=== PATIENT | female | born 1955 | race Caucasian/White ===

== ENCOUNTER 2017-12-19 12:15 | Emergency (ER) | payer BC ==
--- OUTSIDE RECORDS SUMMARY | 2017-12-19 12:20 | XMS REPORT ---
:1955 Author Organization [facility] Address [address] [place] [address] Care Team Providers Name Role Phone Janis Doherty Unavailable Unavailable PROBLEMS Type Condition ICD9-CM Code CSO96-ZT Code Onset Condition SNOMED Code Dates Status Problem Other abnormal R92.8 Active 864555256 and inconclusive findings on diagnostic imaging of breast Problem Abnormal findings R93.8 Active 281716326 on diagnostic imaging of other specified body structures Problem Pelvic and R10.2 Active 965446046 perineal pain Problem Rectocele N81.6 Active 010073858 Problem Family history of Z80.3 Active 969127589 malignant neoplasm of breast Problem Mastodynia N64.4 Active 58958644 Problem Age-related M81.0 Active 671795065 osteoporosis without current pathological fracture ALLERGIES Substance Reaction Event Type Date Status Penicillin unknown Drug Allergy Nov, Active ENCOUNTERS Encounter Location Date Diagnosis [facility] [address] [facility] [address], [address] [place] [id number] [facility] 103 Feb, OBGYN [place] [id number] [facility] 103 Feb, OBGYN [place], [place] [id number] [facility] 103 Nov, Pelvic and perineal pain OBGYN [facility], R10.2 and Abnormal [place] [id number] findings on diagnostic imaging of other specified body structures R93.8 [facility] 103 Nov, Pelvic and perineal pain OBGYN [facility], R10.2 [place] [id number] [facility] Oct, [place] [id number] [facility] [address] [facility] Oct, Encounter for Road [address] [place], gynecological examination [place] [id number] (general) (routine) with abnormal findings Z01.411 ; Encounter for screening for malignant neoplasm of cervix Z12.4 ; Encounter for screening for malignant neoplasm of colon Z12.11 ; Family history of malignant neoplasm of breast Z80.3 ; Age-related osteoporosis without current pathological fracture M81.0 ; Rectocele N81.6 ; Pelvic and perineal pain R10.2 and Mastodynia N64.4 [facility] 103 Aug, OBGYN [place], [place] [id number] [facility] [address] [facility] [address], [address] [id number] [place] [facility] [address] [place], [place] [address] September, Family history of Road [address], malignant neoplasm of [place] [id number] breast Z80.3 [place] [facility] [address] [facility] Aug, Encounter for Road [address], gynecological examination [place] [id number] (general) (routine) with abnormal findings Z01.411 ; Encounter for screening for malignant neoplasm of cervix Z12.4 ; Encounter for screening mammogram for malignant neoplasm of breast Z12.31 ; Encounter for screening for malignant neoplasm of colon Z12.11 ; Family history of malignant neoplasm of breast Z80.3 ; Age-related osteoporosis without current pathological fracture M81.0 and Rectocele N81.6 [facility] 103 Jun, OBGYN [place], [place] [id number] [facility] 103 Jul, OBGYN [place] [id number] [place] [facility] [address] [facility] Jun, Encounter for Road [address] [place] [address], gynecological examination [place] [id number] (general) (routine) with abnormal findings Z01.411 ; Encounter for screening for malignant neoplasm of colon Z12.11 ; Encounter for screening mammogram for malignant neoplasm of breast Z12.31 ; Age-related osteoporosis without current pathological fracture M81.0 ; Rectocele N81.6 and Family history of malignant neoplasm of breast Z80.3 [facility] 103 Jan, OBGYN [place], [place] [id number] [facility] 103 Dec, AB FINDINGS-BREAST NEC OBGYN [facility], 793.89 [place] [id number] [facility] 103 Dec, FAMILY HX-BREAST MALIG OBGYN [facility], V16.3 [place] [id number] [facility] [address] [place] [facility] Nov, FAMILY HX- BREAST MALIG Road [address] [place], V16.3 and Fibrocystic [place] [id number] disease of breast 610.1 [facility] 103 Nov, OBGYN [place], [place] [id number] [facility] [address] [place] [facility] Nov, Abnormal Breast Findings [address] [place], 793.89 [place] [id number] [facility] 103 Jul, OBGYN [place], [place] [id number] [facility] 103 Jun, OBGYN [place], [place] [id number] [facility] [address] [facility] Jun, ROUTINE DROP TESTER EXAMINATION Road [address] [place], V72.31 ; SCREEN MALIG [place] [id number] NEOP-COLON V76.51 ; SCREEN MAMMOGRAM NEC V76.12 ; Rectocele 618.04 and FAMILY HX-BREAST MALIG V16.3 [facility] 103 Feb, OBGYN [place], [place] [id number] [place] [facility] [address] [facility] Feb, FAMILY HX- BREAST MALIG Road [address] [place], V16.3 and Osteopenia [place] [id number] 733.90 [facility] 103 Nov, OBGYN [place], [place] [id number] [facility] [address] [place] [facility] Jul, FAMILY HX- BREAST MALIG Road [address] [place], V16.3 [place] [id number] [facility] 103 Jul, OBGYN [place], [place] [id number] [facility] Jun, Osteopenia 733.90 and OBGYN [facility], Menopausal osteoporosis [place] [id number] 733.01 [facility] 103 Jun, OBGYN [place], [place] [id number] [place] [facility] [address] [place] [facility] Jun, ROUTINE DROP TESTER EXAMINATION Road [address] [place], V72.31 ; PAP SMEAR W/O [place] [id number] DROP TESTER EXAM V76.2 ; SCREEN MALIG NEOP-COLON V76.51 ; SCREEN MAMMOGRAM NEC V76.12 ; FAMILY HX-BREAST MALIG V16.3 and Rectocele 618.04 IMMUNIZATIONS No Known Immunizations SOCIAL HISTORY Never Assessed REASON FOR REFERRAL FUNCTIONAL STATUS PLAN OF CARE Activity Details Follow Up repeat US in 3 mo with f/u Reason: VITAL SIGNS Height 62 in 2017-12-14 Weight 184 lbs 2017-12-14 BMI 33.65 kg/m2 2017-12-14 Blood pressure systolic 126 mm Hg 2017-12-14 Blood pressure diastolic 72 mm Hg 2017-12-14 MEDICATIONS Medication Instructions Dosage Frequency Start End Duration Status Date Date salmon as directed Active iron Active Vitamin B-12 intramuscularly Active 1000 mcg/mL once a month Vitamin D2 orally 3 times a 1 cap(s) Active 50,000 intl week units PROCEDURES No Known procedures RESULTS No Results REASON FOR VISIT u/s f/u MEDICAL (GENERAL) HISTORY Type Description Date Medical History GERD Medical History Rectocele Surgical History Right Breast Biopsy-benign 1994 Surgical History Left Breast Biopsy-benign 1997 Surgical History Implant Dental Hospitalization History Childbirth
[2017-12-19 12:38] VITALS: BP 156/90
--- NOTE | 2017-12-19 13:20 | RAD ---
INDICATION: Cough. Chest pain COMPARISON: None TECHNIQUE: PA and lateral dual-energy views were obtained. FINDINGS: Bones/Soft Tissues: There are no acute bony findings. Cardiomediastinal: The cardiomediastinal silhouette is normal. Lungs: There are no infiltrates. Pleura: There are no pleural effusions. Other: None IMPRESSION: NO ACTIVE DISEASE.
--- NOTE | 2017-12-19 13:37 | UC ---
General HPI - HPI Summary HPI Summary: 62 yo female c/o chest discomfort since this morning. Painoccurs in mid chest, radiates outward, then goes to L shoulder / arm Lasts a couple minutes. Sx correlate with deep cough, she has had a cough last couple days, not bringing anything up. Unclear if positional. Unsure if pertussis immunized. Not short of breath perse (unless cough). No GI Issues. Earlier started sore throat with sinus congestion (not much now). No rash. No fever. No LOC. Does have a hx of Mitral v.p., never pain like this. - History of Current Complaint Chief Complaint: UCChestPain Stated Complaint: RESP COMPLAINT Time Seen by Provider: 12/19/17 12:20 Hx Obtained From: Patient, Family/[employer] Hx Last Menstrual Period: post menopause Pain Intensity: 1 - Allergy/Home Medications Allergies/Adverse Reactions: Allergies Allergy/AdvReac Type Severity Reaction Status Date / Time Penicillins Allergy Unknown Verified 12/19/17 12:38 Reaction Details PMH/Surg Hx/FS Hx/Imm Hx Previously Healthy: Yes - see hpi - Surgical History Surgical History: Yes Surgery Procedure, Year, and Place: BILATERAL BREAST BIOPSYS AT [facility] [place] - Family History Known Family History: Positive: Unknown - Social History Alcohol Use: Weekly Substance Use Type: None Smoking Status (MU): Never Smoked Tobacco Review of Systems Constitutional: Negative Skin: Negative Eyes: Negative ENT: Other - see hpi Respiratory: Cough Cardiovascular: Chest Pain Gastrointestinal: Negative Genitourinary: Negative Motor: Negative Neurovascular: Negative Musculoskeletal: Negative Neurological: Negative Psychological: Negative Is Patient Immunocompromised?: No All Other Systems Reviewed And Are Negative: Yes Physical Exam Triage Information Reviewed: Yes Appearance: Well-Nourished - sitting up, conversing in full sentances. Vital Signs: Initial Vital Signs Temp 98.2 F 12/19/17 12:32 Pulse 74 12/19/17 12:32 Resp 16 12/19/17 12:32 BP 156/90 12/19/17 12:32 Pulse Ox 98 12/19/17 12:32 Vital Signs Reviewed: Yes Eye Exam: Normal ENT Exam: Other - TM's dull, intact. Post pharynx mild red, there is a sore ( approx 0.3cm) R post pharynx. MMM. Trachea midline. No keely adenopathy. Neck exam: Normal Neck: Positive: Supple, Nontender, No Lymphadenopathy Respiratory Exam: Other - BS clear, equal. No rtx. + cough with full expiration; pain not reproduced. Respiratory: Positive: Lungs clear, Normal breath sounds, No respiratory distress, No accessory muscle use Cardiovascular Exam: Other - RRR without murmur appreciated at this time. HR correlates with radial pulse. No aortic bruit to mid-epig ausculation. Abdominal Exam: Normal Abdomen Description: Positive: Nontender Musculoskeletal Exam: Other - moves x 4 ext's. Feet warm to touch. + bilat mild edema and evidence venous insuff changes BLE, both feet warm to touch Neurological Exam: Normal - grossly nonfocal Psychological Exam: Normal - conversing easily and appropriately Skin Exam: Normal - no visible or reported rash. nondiaphoretic. Course/Dx - Course Course Of Treatment: 13:30 reviewed xray and report. NAD. EK sinurs rythm at 75 bpm. N/a old for comp. Chest discomfort is concerning for cardiovascular ( ex possible rhythm disturbance, vascular abnormality, less likely ischemia), also concern for underlying pulmonic event. Also has sx of uri, etiology tbd, although chest pain of this type is not c/w a particular uri syndrome. Denies hx asthma. Emergency Department for further evaluation / management. Declines EMS, will drive. I spoke with SINDY García. - Differential Dx - Multi-Symptom Provider Diagnoses: chest discomfort. cough Discharge - Sign-Out/Discharge Documenting (check all that apply): Patient Departure - Discharge Plan Condition: Stable Disposition: HOME-RECOMMEND TO ED Patient Education Materials: Chest Pain (ED) Referrals: Jeff Kimbrough MD [Primary Care Provider] - Additional Instructions: Go to the Emergency Deparment. Call 911 if problems en route. - Billing Disposition and Condition Condition: STABLE Disposition: Home-Recommend to ED
== END 2017-12-19 13:35 | disposition home health service (06) ==
LOC: UCEAST 12:15
DX: R07.89 Other chest pain (principal); R05 Cough; M25.512 Pain in left shoulder; Z88.0 Allergy status to penicillin
CPT/HCPCS: 71046; 93005; 99211; G0463

== ENCOUNTER 2017-12-19 14:03 | Emergency (ER) | payer BC ==
--- NOTE | 2017-12-19 14:30 | ED ---
HPI Chest Pain - HPI Summary HPI Summary: This is edwardo Thibodeaux documenting for attending Earl Ball MD. This patient is a 62 year old F [facility] from [facility] accompanied by her with a chief complaint of intermittent, sharp left chest pain since 3-4 days ago. The patient notes that the pain radiates to her left arm. The patient rates the pain 8/10 in severity. Symptoms aggravated by coughing. Symptoms alleviated by nothing. Patient reports nonproductive cough and shortness of breath. Patient denies lightheadedness, abd pain, or N/ V. Patient notes that she has mitral valve prolapse. The patient reports that her blood pressure is usually 120/70 at baseline. - History of Current Complaint Chief Complaint: EDChestPainROMI Time Seen by Provider: 12/19/17 14:21 Hx Obtained From: Patient Hx Last Menstrual Period: post menopause Onset/Duration: Started Days Ago - 3 days, Atraumatic Timing: Intermittent Initial Severity: Moderate Current Severity: None Pain Intensity: 8 Pain Scale Used: 0-10 Numeric Chest Pain Radiates: Yes Chest Pain Radiates To:: Arm - left arm pain Character: Cough, Non-Productive, Dyspnea at Rest, Sharp/Stabbing Aggravating Factor(s): Other: - coughing Alleviating Factor(s): Nothing Associated Signs and Symptoms: Positive: Chest Pain, Shortness of Breath, Cough , Nonproductive Cough. Negative: Lightheadedness, Nausea, Vomiting - Allergy/Home Medications Allergies/Adverse Reactions: Allergies Allergy/AdvReac Type Severity Reaction Status Date / Time Penicillins Allergy Unknown Verified 12/19/17 12:38 Reaction Details PMH/Surg Hx/FS Hx/Imm Hx Endocrine/Hematology History: Denies: Hx Diabetes Cardiovascular History: Reports: Other Cardiovascular Problems/Disorders - mitral valve prolapse Denies: Hx Hypertension, Hx Pacemaker/ICD History: Denies: Hx Dialysis, Hx Renal Disease Sensory History: Denies: Hx Hearing Aid Psychiatric History: Denies: Hx Panic Disorder - Surgical History Surgery Procedure, Year, and Place: BILATERAL BREAST BIOPSYS AT [facility] Infectious Disease History: No Infectious Disease History: Denies: Traveled Outside the [place] in Last 30 Days - Family History Known Family History: Positive: Hypertension - Social History Alcohol Use: Weekly Substance Use Type: Reports: None Smoking Status (MU): Never Smoked Tobacco Review of Systems Positive: Chest Pain Positive: Shortness Of Breath, Cough Negative: Abdominal Pain, Vomiting, Nausea Neurological: Negative - negative lightheadedness All Other Systems Reviewed And Are Negative: Yes Physical Exam - Summary Physical Exam Summary: VITAL SIGNS: Reviewed. GENERAL: Patient is a well-developed and nourished FEMALE who is lying comfortable in the stretcher. Patient is not in any acute respiratory distress. HEAD AND FACE: No signs of trauma. No ecchymosis, hematomas or skull depressions. No sinus tenderness. EYES: PERRLA, EOMI x 2, No injected conjunctiva, no nystagmus. EARS: Hearing grossly intact. Ear canals and tympanic membranes are within normal limits. MOUTH: Oropharynx within normal limits. NECK: Supple, trachea is midline, no adenopathy, no JVD, no carotid bruit, no c- spine tenderness, neck with full ROM. CHEST: Symmetric, no tenderness at palpation LUNGS: Clear to auscultation bilaterally. No wheezing or crackles. CVS: Regular rate and rhythm, S1 and S2 present, no murmurs or gallops appreciated. ABDOMEN: Soft, non-tender. No signs of distention. No rebound no guarding, and no masses palpated. Bowel sounds are normal. EXTREMITIES: FROM in all major joints, no edema, no cyanosis or clubbing. NEURO: Alert and oriented x 3. No acute neurological deficits. Speech is normal and follows commands. SKIN: Dry and warm Triage Information Reviewed: Yes Vital Signs On Initial Exam: Initial Vitals Temp Pulse Resp BP Pulse Ox 98.7 F 73 16 163/100 97 12/19/17 14:06 12/19/17 14:06 12/19/17 14:06 12/19/17 14:06 12/19/17 14:06 Vital Signs Reviewed: Yes Diagnostics - Vital Signs Vital Signs Temp Pulse Resp BP Pulse Ox 12/19/17 14:06 98.7 F 73 16 163/100 97 - Laboratory Result Diagrams: 12/19/17 14:36 12/19/17 14:36 Lab Statement: Any lab studies that have been ordered have been reviewed, and results considered in the medical decision making process. - Radiology CXR Xray Interpretation: No Acute Changes - IMPRESSION: NO ACTIVE DISEASE. Dr. Ball has reviewed this report. Radiology Interpretation Completed By: Radiologist - EKG 14:39 Cardiac Rate: NL - at 71 bpm EKG Rhythm: Sinus Rhythm EKG Interpretation: no ST elevations. Q wave in aVF Chest Pain Course/Dx - Course Assessment/Plan: This patient is a 62 year old F presenting to [facility] upon referral from Urgent Care accompanied by her with a chief complaint of intermittent, sharp left chest pain since 3-4 days ago. The patient notes that the pain radiates to her left arm. The patient rates the pain 8/10 in severity. Symptoms aggravated by coughing. Symptoms alleviated by nothing. Patient reports nonproductive cough and shortness of breath. Patient denies lightheadedness, abd pain, or N/V. Patient notes that she has mitral valve prolapse. The patient reports that her blood pressure is usually 120/70 at baseline. Blood tests without any significant abnormality, chest x-ray shows no active disease. Obtained 2 troponins 4 hours apart and they were negative. I am fairly comfortable that the patient doesnt have any acute coronary syndrome since the troponins are negative and a recent stress test is also was negative. I believe that the patient has a viral cough. Because of the cough the patient is having some chest pain when she coughs. Therefore the patient was given with the same with codeine and the symptoms improved. I was informed by the nurse that mistakenly she will give the patient 600 mg of guaifenesin and and 30 mg of codeine. I observed the patient for approximately an additional 3 hours and the patient is alert and oriented 3 and she doesnt have any other complaints or symptoms. She reports actually that the cough is significantly improved. Therefore the patient will be discharged home with follow with primary care physician. Patient was instructed to return to the emergency room she develops any chest patient developed palpitations. - Chest Pain Differential Diagnosis/HQI/PQRI: Acute MT, ACS, Angina, CHF, Chest Wall, GI Disease, Lower Respiratory Infection - Diagnoses Provider Diagnoses: Atypical chest pain, Cough, High blood pressure Discharge - Sign-Out/Discharge Documenting (check all that apply): Patient Departure - Discharge Plan Condition: Stable Disposition: HOME Prescriptions: guaiFENesin/CODIEN 100MG-10MG* [Robitussin AC 100Mg-10Mg*] 5 ml PO Q4H PRN #60 ml MDD 15 ml PRN Reason: Cough Patient Education Materials: Chest Pain (ED) Referrals: Jeff Kimbrough MD [Primary Care Provider] - 2 Days Additional Instructions: Follow up with primary care physician concerning high blood pressure in 2-3 days. Return to the emergency department with any new or worsening symptoms. - Billing Disposition and Condition Condition: STABLE Disposition: Home
[2017-12-19 14:50] LABS: ABS Basophils 0.1 10^3/ul (0-0.2); ABS Eosinophils 0.2 10^3/ul (0-0.6); ABS Lymphocytes 0.8 10^3/ul (1.0-4.8); ABS Monocytes 0.4 10^3/ul (0-0.8); ABS Neutrophils 3.6 10^3/ul (1.5-7.7); ABS Nucleated RBC 0 10^3/ul; Eosinophil % 3.5 % (0-6); Hematocrit 40 % (35-47); Hemoglobin 13.5 g/dl (12.0-16.0); Lymphocyte % 15.4 % (25-47); Mean Corpuscular HGB Conc 34 g/dl (31-36); Mean Corpuscular Hemoglobin 31 pg (27-31); Mean Corpuscular Volume 90 fL (80-97); Mean Platelet Volume 9.2 um3 (7.4-10.4); Nucleated Red Blood Cells % 0.1; Platelet Count 182 10^3/ul (150-450); Red Blood Count 4.41 10^6/ul (4.00-5.40); Red Cell Distribution Width 13 % (10.5-15)
--- NOTE | 2017-12-19 15:13 | RAD ---
INDICATION: Chest pain COMPARISON: Examination same date at 1300 hours TECHNIQUE: PA and lateral dual-energy views were obtained. Examination was obtained at 1440 hours FINDINGS: Bones/Soft Tissues: There are no acute bony findings. Cardiomediastinal: The cardiomediastinal silhouette is normal. Lungs: There are no infiltrates. Pleura: There are no pleural effusions. Other: None IMPRESSION: NO ACTIVE DISEASE.
[2017-12-19 15:37] LABS: EGFR Non-African American 76.5 (>60)
[2017-12-19 16:15] LABS: Urine Appearance Clear; Urine Blood Negative (Negative); Urine Color Straw; Urine Ketones Negative (Negative); Urine Protein Negative (Negative); Urine Specific Gravity 1.005 (1.010-1.030); Urine Urobilinogen Negative (Negative)
[2017-12-19] MEDS ORDERED: guaiFENesin/CODIEN 100MG-10MG* 5 ML UDC PO ONE ×2 (17:53)
[2017-12-19 21:45] VITALS: BP 150/101
== END 2017-12-19 21:35 | disposition home or self-care (01) ==
LOC: ED 14:03
DX: R07.89 Other chest pain (principal); R05 Cough; R06.02 Shortness of breath; R03.0 Elevated blood-pressure reading, without diagnosis of hypertension; Z88.0 Allergy status to penicillin; Z82.49 Family history of ischemic heart disease and other diseases of the circulatory system
CPT/HCPCS: 36415; 71046; 80053; 81003; 82550; 82553; 83605; 83735; 83880; 84443; 84484; 85025; 93005; 99284; A9270-GY

== ENCOUNTER 2020-10-24 23:26 | Observation (INO) ==
[2020-10-25 00:54] LABS: ABS Eosinophils 0.2 10^3/ul (0-0.6); ABS Lymphocytes 1.9 10^3/ul (1.0-4.8); ABS Monocytes 0.5 10^3/ul (0-0.8); ABS Neutrophils 3.4 10^3/ul (1.5-7.7); Eosinophil % 3.9 %; Hematocrit 41 % (35-47); Hemoglobin 13.8 g/dL (12.0-16.0); Lymphocyte % 32.1 %; Mean Corpuscular HGB Conc 34 g/dL (31-36); Mean Corpuscular Hemoglobin 31 pg (27-31); Mean Corpuscular Volume 91 fL (80-97); Mean Platelet Volume 9.6 fL (7.4-10.4); Platelet Count 196 10^3/uL (150-450); Red Blood Count 4.49 10^6 /uL (3.70-4.87); Red Cell Distribution Width 13 % (10-15)
[2020-10-25 01:04] LABS: Activated Partial Thrombo Time 32.3 seconds (26.0-38.0); INR 0.97 (0.82-1.09)
[2020-10-25 01:13] LABS: Albumin 4.1 g/dL (3.2-5.2); Albumin/Globulin Ratio 1.6 (1-3); Calcium 9.8 mg/dL (8.6-10.3); EGFR African American 73.7 (>60); EGFR Non-African American 60.9 (>60); Globulin 2.5 g/dL (2-4); Magnesium 1.9 mg/dL (1.9-2.7); Total Bilirubin 0.3 mg/dL (0.2-1.0); Total Protein 6.6 g/dL (6.4-8.9)
[2020-10-25 01:18] LABS: CKMB ng/mL 1.3 ng/mL (0.6-6.3)
[2020-10-25 02:52] LABS: TSH Ultra Thyroid Stim Horm 2.24 mcIU/mL (0.34-5.60)
[2020-10-25] MEDS ORDERED: Diltiazem IV push/loading dose 5 MG/ML 5 ML vial (25 mg) IV SLOW PU ONE (03:45)
[2020-10-25 04:46] LABS: Urine Appearance Clear; Urine Bilirubin Negative (Negative); Urine Blood Negative (Negative); Urine Color Straw; Urine Glucose Negative (Negative); Urine Ketones Negative (Negative); Urine Nitrite Negative (Negative); Urine Protein Negative (Negative); Urine Specific Gravity 1.009 (1.002-1.030); Urine Urobilinogen Negative (Negative)
[2020-10-25 05:17] LABS: Urine Bacteria Absent (Absent); Urine Red Blood Cell Absent (Absent); Urine Squamous Epithelial Cell Present (Absent); Urine White Blood Cell 2+(11-20/hpf) (Absent)
[2020-10-25] MEDS ORDERED: Magnesium Sulfate IV 1GM/100ML 1 GM/100 ML BAG IV ONE (05:23)
[2020-10-25] MEDS ORDERED: Ondansetron 4 mg VIAL 2 MG/ML 2 ml VIAL IV PRN (05:26)
[2020-10-25 05:53] LABS: HDL Cholesterol 50.6 mg/dL
[2020-10-25 12:06] VITALS: BP 116/76
== END 2020-10-25 15:13 | disposition home or self-care (01) ==
LOC: MEDTELE 23:26 → ED 23:26 → MEDTELE 10-25 07:04
PROVIDERS: ADMIT Internal Medicine; ATTEND Internal Medicine